=== PATIENT | female | born 2000 | race Caucasian/White ===

== ENCOUNTER 2024-05-23 09:18 | Emergency (ER) | payer OTHER, SELFPAY ==
[2024-05-23 09:32] VITALS: BP 109/75; PULSE 80; RESP 16; TEMP 37; O2SAT 100
--- NOTE | 2024-05-23 09:34 | ED.GENADULT ---
HPI - General Adult General Chief complaint: Neck Pain/Injury Stated complaint: Neck Pain Time Seen by Provider: 05/23/24 09:35 Source: patient, RN notes reviewed and old records reviewed Mode of arrival: ambulatory Limitations: no limitations History of Present Illness HPI narrative: 23old female presents to the [facility] with complaints of right lateral neck pain. Patient denies any injury. States she has had something similar in the past approximately 2 years ago Patient denies any midline tenderness. Had some tingling last night in the right arm. Nothing now. Does have full range of motion. 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 Home Medications Medication Instructions Recorded Confirmed cabergoline 0.5 mg tablet 0.5 mg PO DAILY 05/23/24 05/23/24 desogestrel 0.15 mg-ethinyl 1 tablet PO DAILY 05/23/24 05/23/24 estradiol 0.03 mg tablet (Isibloom) Allergies Allergy/AdvReac Type Severity Reaction Status Date / Time No Known Allergies Allergy Verified 05/23/24 10:01 Review of Systems Review of Systems: All systems reviewed & are unremarkable except as noted in HPI and below Constitutional: Constitutional: Reports no additional constitutional complaints Eyes: Eyes: Reports no additional eye complaints ENT: Reports system reviewed and no additional complaints, except as documented Cardiovascular: Cardiovascular: Reports no additional cardiovascular complaints, Denies chest pain and Denies dyspnea Respiratory: Respiratory: Reports no additional respiratory complaints, Denies chest congestion, Denies cough and Denies dyspnea Gastrointestinal: Gastrointestinal: Reports no additional gastrointestinal complaints, Denies abdominal pain, Denies nausea and Denies vomiting Musculoskeletal: Musculoskeletal: Reports as per HPI Integumentary/Breasts: Skin/Breast: Reports system reviewed and no additional complaints, except as docu Neurologic: Reports system reviewed and no additional complaints, except as documented Psychiatric: Psychiatric: Reports no additional psychiatric complaints Allergic/Immunologic: Allergic/Immunologic: Reports no additional allergic/immunologic complaints PMFSH Comments At the time of my signature, I reviewed and agree with the nursing past medical, surgical, social, and family history. There is no relevant family history pertinent to the patient complaint. Exam Const: General: cooperative, healthy appearing, comfortable, no acute distress, well developed, alert and well nourished Nutritional Appearance: well nourished Orientation/consciousness: patient oriented x3 Limitations: no limitations HENMT: Head: normal to inspection Ears: hearing grossly normal bilaterally and external ears normal Face/Nose/Sinus: Normal external nose present, normal facial exam and face symmetric Face and sinus: normal facial exam and face symmetric Eyes: General: appearance normal, both eyes and all related structures Alignment and Position: alignment normal Periorbital: periorbital findings normal Neck: Neck: normal visual inspection, no lymphadenopathy, no meningeal signs, trachea midline, supple, no anterior neck swelling, no midline deformity, tender (Right lateral) and No submandibular swelling Chest: Chest palpation & inspection: normal inspection of the chest Resp: Effort & Inspection: normal respiratory effort and able to speak in complete sentences Auscultation: clear to auscultation bilaterally, no crackles, no rales, no rhonchi and no wheezes Cardio: Rate: regular rate Rhythm: regular rhythm Back/Spine/Pelvis: Cervical Spine: cervical muscular tenderness (Right lateral), pain with cervical ROM (Moving right to left. Able to nod), No Cervical spine tenderness and No step off deformity Thoracic/Lumbar Spine: No paraspinal muscle tenderness, No thoracic spinal tenderness and No lumbar spinal tenderness Back/spine/pelvis image: 1. Tenderness to palpation, no erythema, rashes, swelling, bruising Sk
== END 2024-05-23 10:06 | disposition home or self-care (01) ==
PROVIDERS: Emergency Provider Nurse Practitioner
DX: S16.1XXA Strain of muscle, fascia and tendon at neck level, initial encounter (principal); X58.XXXA Exposure to other specified factors, initial encounter
CPT/HCPCS: 99203; G0463

== ENCOUNTER 2025-07-15 19:25 | Emergency (ER) | payer OTHER, SELFPAY ==
[2025-07-15 19:34] VITALS: BP 105/71; PULSE 82; RESP 16; TEMP 36.7; O2SAT 100
[2025-07-15 19:56] LABS: EDCOVIDSCREEN Positive (Negative); EDINFLUASCREEN Negative (Negative); EDINFLUBSCREEN Negative (Negative)
--- NOTE | 2025-07-15 19:58 | ED_ITS ---
HPI - URI/Sore Throat General Chief Complaint: Upper Respiratory Infection Stated Complaint: Flu Symptoms Time Seen by Provider: 07/15/25 19:50 Source: patient and RN notes reviewed Mode of arrival: ambulatory Limitations: no limitations History of Present Illness HPI Narrative: 24-year-old female patient presents today with 2 day history of cough, congestion, rhinorrhea, cough, body aches, subjective fever, sore throat, nausea. She has been taking Tylenol with some improvement. Denies shortness of breath, chest pain. No history of asthma. No smoking or vaping Related Data Home Medications ?Medication ?Instructions ?Recorded ?Confirmed ?Last Taken ?Type cabergoline 0.5 mg tablet 0.5 mg PO DAILY 05/23/2405/08 Unknown History desogestrel 0.15 mg-ethinyl 1 tablet PO DAILY 05/23/24 05/23/24 Unknown History estradiol 0.03 mg tablet (Isibloom) Allergies Allergy/AdvReac Type Severity Reaction Status Date / Time No Known Allergies Allergy Verified 05/23/24 10:01 [facility] Comments At time of signature, I have reviewed and agree with nursing past medical, surgical, social and family history unless otherwise noted. Please see nursing chart for further information. There is no relevant family history pertinent to the presenting complaint Exam Narrative: GENERAL: Mildly ill-appearing, well-nourished, and in no acute distress. HEAD: Normocephalic, atraumatic. EYES: EOMI. No redness or drainage. Conjunctivae normal. ENT: Mucous membranes pink and moist. Nares congested with rhinorrhea. TMs normal bilaterally. Throat mildly erythematous without edema or exudate. Uvula midline. NECK: Normal AROM. Supple. No lymphadenopathy. CHEST: No respiratory distress. Clear to auscultation. HEART: Regular rate and rhythm. No murmur appreciated. EXTREMITIES: Normal range of motion. No edema. SKIN: Warm, dry, no rash. Capillary refill normal. Normal skin turgor. NEURO: No focal deficits. Alert and oriented x3. Gait steady. PSYCH: Normal affect. No signs of depression or anxiety. Course Course Level of Care: Express Care Visit Vital Signs Vital signs: Vital Signs Temperature 98.1 F 07/15/25 19:34 Pulse Rate 82 07/15/25 19:34 Respiratory Rate 16 07/15/25 19:34 Blood Pressure 105/71 07/15/25 19:34 Pulse Oximetry 100 07/15/25 19:34 Temperature 98.1 F 07/15/25 19:34 Pulse Rate 82 07/15/25 19:34 Respiratory Rate 16 07/15/25 19:34 Blood Pressure 105/71 07/15/25 19:34 Pulse Oximetry 100 07/15/25 19:34 Reviewed MDM MDM Narrative Medical decision making narrative: 24-year-old female patient presents today with 2 day history of cough, congestion, rhinorrhea, cough, body aches, subjective fever, sore throat, nausea. She has been taking Tylenol with some improvement. Denies shortness of breath, chest pain. No history of asthma. No smoking or vaping. Upon exam, patient is mildly ill appearing with nasal congestion, rhinorrhea, and a mildly erythematous throat. Lung auscultation normal. Influenza test negative. COVID positive. Discussed [id number] medication use and duration of illness. No prescription medications indicated at this time. Patient agrees with plan. Vital signs stable. Anticipatory guidance given. ED precautions given. Differential Diagnosis Differential Diagnosis: COVID-19, influenza, URI, pharyngitis Lab Data Labs: Lab Results 07/15/25 Range/Units 19:51 POC Influenza A Ag Negative (Negative) POC Influenza B Ag Negative (Negative) POC SARS CoV-2 Ag Positive (Negative) Critical Care Time Critical Care Time Critical Care Time: No Discharge Plan Discharge Clinical Impression: COVID-19 Patient Disposition: Home Condition: Stable Instructions: COVID-19 (Coronavirus Disease 2019) (ED) Additional Instructions: You have been diagnosed with COVID-19. Take [id number] medications such as Tylenol or ibuprofen for pain and fever. Rest and stay hydrated. Follow-up with your PCP in 1 week if symptoms are not improving. As discussed, if symptoms worsen to include shortness of breath, chest pain, please go to the ER for further evaluation. Patient Language: Yoruba Prescriptions: No Action desogestrel-ethinyl estradiol [Isibloom] 0.15-0.03 mg tablet 1 tablet PO DAILY cabergoline 0.5 mg tablet 0.5 mg PO DAILY prednisone 20 mg tablet See Rx Instructions .Route .COMPLEX Qty: 18 0RF Rx Instructions: Take 60 mg daily for 3 days, 40 mg daily for 3 days, 20 mg daily for 3 days baclofen 10 mg tablet 10 mg PO TID PRN (Reason: muscle pain) Qty: 10 0RF Follow-up/Referrals: PHYSICIAN,NETWORK APPLICATIONS SPECIALIST [Primary Care Provider, Internal Medicine] Time of Disposition: 19:57
== END 2025-07-15 19:58 | disposition home or self-care (01) ==
PROVIDERS: Emergency Provider Nurse Practitioner
DX: U07.1 COVID-19 (principal)
CPT/HCPCS: 87426; 87804; 99212; G0463